=== PATIENT | male | born 1955 | race Caucasian/White ===

== ENCOUNTER → 2016-11-22 | Outpatient (CLI) | payer BC | LOC: RAD 08:22 | DX: M25.462 Effusion, left knee (principal); M17.32 Unilateral post-traumatic osteoarthritis, left knee ==

== ENCOUNTER 2016-11-30 05:34 | Inpatient (IN) | payer BC ==
[2016-11-26 14:19] LABS: HEMATOCRIT 41.4 % (42.0-52.0); HEMOGLOBIN 13.9 gm/dL (14.0-18.0); MCH 30.3 pg (26.0-34.0); MCHC 33.6 g/dL (28.0-37.0); MCV 90.1 fL (80.0-100.0); RBC 4.6 mil/uL (4.50-6.00); RDW 13.3 % (10.5-14.5); WBC 8.6 thou/uL (4.0-11.0)
[2016-11-26 14:24] LABS: URINE BILIRUBIN NEGATIVE (Negative); URINE BLOOD NEGATIVE (Negative); URINE COLOR YELLOW; URINE GLUCOSE-RANDOM* NEGATIVE (Negative); URINE KETONES NEGATIVE (Negative); URINE LEUKOCYTES-REFLEX NEGATIVE (Negative); URINE PROTEIN (DIPSTICK) NEGATIVE (Negative); URINE UROBILINOGEN 0.2 E.U./dl (0.2-1.0)
[2016-11-26 14:33] LABS: ALBUMIN 3.9 g/dL (3.4-5.0); CALCIUM 8.5 mg/dL (8.5-10.1); CREATININE 0.9 mg/dL (0.7-1.3); POTASSIUM 4.1 mmol/L (3.5-5.1)
[2016-11-26 14:36] LABS: PROTIME 10.1 Seconds (9.3-11.4)
[~2016-11-30] VITALS: Ht 182.9 cm; Wt 78.0 kg
[2016-11-30] VITALS (8 sets, daily range): BP systolic 106–122; BP diastolic 63–81
--- NOTE | ~2016-11-30 | H ---
[facility] [place] [address] HISTORY AND PHYSICAL Name: NIRMAL SMALL Room #: 547-P [facility] IN M.R.#: [id number] Admission: 11/30/16 Attend Phys: Ivan Parada MD Discharge: 12/01/16 Date of : 59 Report #: [id number] THIS REPORT FOR: //name// For History and Physical, please see office documentation/handwritten note in the patient's medical record. <ELECTRONICALLY SIGNED> By: Ivan Parada MD 12/07/16 0720 1225 Ivan Parada MD /
--- NOTE | ~2016-11-30 | O ---
[facility] [address] [address] OPERATIVE REPORT Name: GEOVANNYNIRMAL Jez Room #: 547-P [facility] IN M.R.#: [id number] Admission: 11/30/16 Attend Phys: Ivan Parada MD Discharge: 12/01/16 Date of : 59 Report #: [id number] THIS REPORT FOR: //name// CC: Ivan Byrnes MD DATE OF SERVICE: 11/30/2016 PREOPERATIVE DIAGNOSIS: Left knee subluxated polyethylene component to unicompartmental knee replacement. POSTOPERATIVE DIAGNOSIS: Left knee subluxated polyethylene component to unicompartmental knee replacement. PROCEDURE: Left knee exchange of polyethylene for a thicker polyethylene component. SURGEON: Ivan Parada M.D. R AND D LAB TECHNICIAN: Zachary Beatty, nurse practitioner. ANESTHETIC: General. INDICATIONS: See [facility] H and P. IMPLANTS UTILIZED: We used a [employer] [place] left medial meniscal bearing polyethylene component size medium, 4 mm thick. DESCRIPTION OF PROCEDURE: After adequate general anesthesia had been obtained, the patient's left lower extremity was prepped and draped in the usual meticulous sterile fashion. A previously made incision was opened, subQ divided sharply. Medial parapatellar incision was made. We identified that the component had apparently self-reduced. It was, however, worn a little thin and he had increased opening with valgus dressing. The component was removed. I irrigated the knee copiously and removed scarred tissue adjacent to the implant. The femoral component and tibial component were both inspected thoroughly. I placed pressure on that with an instrument and they clearly were not loose. I then placed the trial. I used a 4-mm trial and we had excellent excursion and good stability with this component trial. I did elect to remove a little bit of bone from the anterior aspect to the component to ensure we did not have any impingement in extension. At this time, the wound was irrigated copiously. The implant was taken out of the field, soaked in antibiotic irrigation and then put into position. It was taken through several cycles of flexion and extension and did appear to be [facility] [address] [place] [address] OPERATIVE REPORT Name: NIRMAL SMALL Room #: 547-P [facility] IN M.R.#: [id number] Admission: 11/30/16 Attend Phys: Ivan Parada MD Discharge: 12/01/16 Date of : 59 Report #: [id number] stable. At this time, the knee was taken out to 30 degrees of flexion. I then closed the retinaculum with combination of interrupted [id number] #1 Vicryl as well as running #1 Tevdek. SubQ was closed with 2-0 Monocryl, skin closed with shelley. Sterile compressive dressing was applied and tourniquet then deflated. <ELECTRONICALLY SIGNED> By: Ivan Parada MD 12/07/16 0720 1053 1211 Ivan Parada MD /jorgito
[~2016-11-30 05:34] MED LIST: ASPIR-LOW81 MG PO; BUPROPION HCL200 MG PO; CENTRUM SILVER1 EAC2 PO; CLARITIN10 MG PO; GLUCOSAMINE CH1 EAC1 PO; METOPROLOL SUCC50 MG PO; TAMBOCOR 100 M100 M1 PO
[2016-12-01 00:05] VITALS: BP 98/63
[2016-12-01 04:00] VITALS: BP 106/66
[2016-12-01] MEDS ORDERED: HYDROCODONE-APA1 TA1 PO (07:02)
[2016-12-01 08:25] VITALS: BP 111/77
[2016-12-01] MEDS ORDERED: ASPIRIN325 PO (16:02)
[2016-12-01 16:21] VITALS: BP 111/77
[2016-12-01 16:47] VITALS: BP 125/79
== END 2016-12-01 18:15 | disposition home or self-care (01) | DRG 468 ==
LOC: PRE 05:34 → TBA 05:38 → 5S 05:38 → PRE 09:25 → 5S 12:29 → PRE 13:30 → 5S 12-01 18:15
PROVIDERS: Orthopaedic Surgery
PROC: 0SPU0JZ Removal of Synthetic Substitute from Left Knee Joint, Femoral Surface, Open Approach (ICD-10-PCS; principal; 2016-11-30)
PROC: 0SRU0JZ Replacement of Left Knee Joint, Femoral Surface with Synthetic Substitute, Open Approach (ICD-10-PCS; principal; 2016-11-30)
DX: T84.023A Instability of internal left knee prosthesis, initial encounter (principal); I48.0 Paroxysmal atrial fibrillation; F41.9 Anxiety disorder, unspecified; I50.9 Heart failure, unspecified; F32.9 Major depressive disorder, single episode, unspecified; Z82.61 Family history of arthritis; Z82.49 Family history of ischemic heart disease and other diseases of the circulatory system
CPT/HCPCS: 10785; 50010; 50101; 50415; 50954; 51320; 51412; 51771; 52001; 52282; 53000; 53337; 53370; 56525; 56527; 62110; 62900; 70005

== ENCOUNTER → 2018-05-30 | Outpatient (CLI) | payer BC ==
[~2018-05-30] MED LIST changes: +ASPIRIN325 PO; +HYDROCODONE-APA1 TA1 PO
[2018-05-30 08:46] LABS: HEMATOCRIT 40.8 % (42.0-52.0); HEMOGLOBIN 13.9 gm/dL (14.0-18.0); MCH 31.1 pg (26.0-34.0); MCHC 34.1 g/dL (28.0-37.0); MCV 91.3 fL (80.0-100.0); RBC 4.47 mil/uL (4.50-6.00); RDW 13.4 % (10.5-14.5); WBC 7.4 thou/uL (4.0-11.0)
[2018-05-30 08:56] LABS: ALBUMIN 3.8 g/dL (3.4-5.0); CALCIUM 9.3 mg/dL (8.5-10.1); CREATININE 0.9 mg/dL (0.7-1.3); POTASSIUM 4.2 mmol/L (3.5-5.1); TOTAL BILIRUBIN 0.4 mg/dL (<0.1-1.0); TOTAL PROTEIN 7.8 g/dL (6.4-8.2)
== END ==
LOC: CAT 07:36
PROVIDERS: Internal Medicine Cardiovascular Disease
DX: J43.9 Emphysema, unspecified (principal)

== ENCOUNTER 2018-06-02 06:31 | Observation (INO) | payer BC ==
[2018-06-02] VITALS (7 sets, daily range): BP systolic 90–117; BP diastolic 52–80
[~2018-06-02] VITALS: Ht 182.9 cm; Wt 79.4 kg
--- NOTE | ~2018-06-02 | H ---
[facility] [place] [address] [address] [place] [address] HISTORY AND PHYSICAL Name: NIRMAL SMALL Room #: 213-P [facility] M..#: [id number] Admission: 06/02/18 Attend Phys: Wesley Mcdonough MD Discharge: Date of : 59 Report #: [id number] THIS REPORT FOR: //name// CC: Wesley Byrnes DATE OF SERVICE: 06/02/2018 PREOPERATIVE DIAGNOSIS: Atrial fibrillation. HISTORY OF PRESENT ILLNESS: The patient is a 63-year-old male with a history of paroxysmal AFib, here for AFib ablation. He denies chest pain, shortness of breath, PND, orthopnea, presyncope or syncope. He has been having increased palpitations and has had intolerances to flecainide due to fatigue and weakness. PAST MEDICAL HISTORY: 1. Paroxysmal AFib. 2. Prior knee surgery. 3. Obstructive sleep apnea. SOCIAL HISTORY: Does not smoke. FAMILY HISTORY: Noncontributory. ALLERGIES: No known drug allergies. MEDICATIONS: Have been reviewed and include the beta priya, flecainide and Pradaxa therapy. REVIEW OF SYSTEMS: A 12-point review of systems was performed and was negative other than what I mentioned above. PHYSICAL EXAMINATION: VITAL SIGNS: Stable. GENERAL: No acute distress. HEENT: Oropharynx clear. HEART: Regular rate and rhythm. LUNGS: Clear to auscultation bilaterally. ABDOMEN: Soft, nontender, nondistended. EXTREMITIES: No clubbing, cyanosis, edema. NEUROLOGIC: Cranial nerves 2-12 intact. LABORATORY DATA: Today were within normal limits. His recent MADELINE showed no clot, normal LV function. His CT scan showed normal left atrial anatomy. [facility] [address] [place] [address] HISTORY AND PHYSICAL Name: NIRMAL SMALL SEKOU Room #: 213-P [facility] Bryn#: [id number] Admission: 06/02/18 Attend Phys: Wesley Mcdonough MD Discharge: Date of : 59 Report #: [id number] ASSESSMENT: Paroxysmal atrial fibrillation. PLAN: The patient will proceed with AFib ablation. We have discussed the details of the procedure including the risks, which include but not limited to bleeding, infection, vascular damage, cardiac perforation as well as stroke or LA. He understands these risks and is willing to proceed. By: 1400 1730 Wesley Mcdonough MD /nt
--- NOTE | ~2018-06-02 | D ---
[facility] [place] [address] DISCHARGE SUMMARY Name: NIRMAL SMALL Room #: 213-P [facility] Sebastian Clemente#: [id number] Admission: 06/02/18 Attend Phys: Wesley Mcdonough MD Discharge: 06/03/18 Date of : 59 Report #: [id number] THIS REPORT FOR: //name// CC: Wesley Byrnes DATE OF SERVICE: 06/03/2018 FINAL DIAGNOSES: 1. Atrial fibrillation, status post ablation. 2. 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 3. Hypertension. 4. Obstructive sleep apnea. HOSPITAL COURSE: Please see the procedure note. The patient has a history of paroxysmal atrial fibrillation, managed with flecainide and beta priya therapy. He has symptoms attributed to his arrhythmia and medications. He presented electively for an EP study. Dr. Mcdonough performed ablation of atrial fibrillation. 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 He has remained hemodynamically stable overnight. Both groin areas are intact without evidence for hematoma. He will be discharged home. FINAL DISPOSITION: He will continue Pradaxa therapy, flecainide, Toprol-XL 50 mg daily. He is given instructions for followup in the office. <ELECTRONICALLY SIGNED> By: Navneet Ellington MD 06/04/18 0812 0934 1019 MD gibran Diamond
--- NOTE | ~2018-06-02 | P ---
[facility] [place] [address] [address] PROCEDURE REPORT Name: NIRMAL SMALL Room #: 213-P [facility] M.R.#: [id number] Admission: 06/02/18 Attend Phys: Wesley Mcdonough MD Discharge: Date of : 59 Report #: [id number] THIS REPORT FOR: //name// CC: Wesley Byrnes PREOPERATIVE DIAGNOSIS: Paroxysmal atrial fibrillation. POSTOPERATIVE DIAGNOSES: Paroxysmal atrial fibrillation, atrial flutter, and typical atrioventricular mehnaz reentrant tachycardia. PROCEDURES PERFORMED: 1. A-fib ablation, CPT code 81135. 2. 3D mapping, CPT code 28112. 3. Intracardiac echo, CPT code 18056. 4. Second pathway ablation for AV mehnaz retention tachycardia, CPT code 34904. HISTORY: The patient is a 63-year-old male with history of paroxysmal atrial fibrillation who has had continued palpitations and intolerances to flecainide therapy and is here for an ablation. ANESTHESIA: The patient underwent general anesthesia with no anesthesia related complications. DESCRIPTION OF PROCEDURE: The patient underwent informed consent. We discussed the details of the procedure including the risks, which include, but not limited to bleeding, vascular damage, cardiac perforation, as well as stroke or PA. He understood these risks and was willing to proceed. The patient was brought to the EP laboratory in a fasting and sedated state and prepped and draped in a sterile fashion. I obtained access to the right femoral vein times 3, placing an 8-Palestinian, 9-Palestinian, and 7-Palestinian short sheath using the modified Seldinger technique and then under fluoroscopy, I placed a decapolar catheter easily in the coronary sinus, which of note had a very vertical orientation and I paced the ICE catheter into the right atrium. Of note, with intracardiac ultrasound, I had difficulties really seeing the pulmonary veins or the appendage. He had a very vertical heart orientation and therefore our standard views were somewhat different than usual given his heart's orientation. The patient was then systemically heparinized and I attempted to perform a transseptal using a standard C0 Vidal needle. However, this did not provide enough reach due to his unusual anatomy. I therefore used a C1 needle and I was able to obtain access in the very anterior location along the interatrial septum. This crossed with ease. Prior to the transseptal, the patient was systemically heparinized. Next, I advanced the SL1 sheath into the left atrium and using a Biosense Stanley Lasso catheter, I created a detailed 3D geometry of the left atrium. Next, I exchanged the SL1 sheath for the cryo sheath and [address] [address] PROCEDURE REPORT Name: GEOVANNYNIRMAL SEKOU Room #: 213-P [facility] Sebastian M.RKala#: [id number] Admission: 06/02/18 Attend Phys: Wesley Mcdonough MD Discharge: Date of : 59 Report #: [id number] placed the cryoballoon into the left atrium. I first started by isolating the left superior pulmonary vein. Of note, the left superior pulmonary vein had a very vertical takeoff. This vein underwent 1 freeze of 4 minutes' duration. This vein isolated within 53 seconds. I then turned my attention to the left inferior pulmonary vein. I performed a 3-minute freeze followed by a 4-minute freeze and the vein remained connected. I then clocked to the catheter and performed a third freeze where the vein isolated within 48 seconds. The third freeze was of 3 minutes' duration. I then turned my attention to the right-sided pulmonary veins. Phrenic nerve pacing was performed during these freezes and there was never any phrenic nerve compromise. I performed two 4-minute freezes in this vessel and the vein remained connected. I then clocked the catheter and pulled it down to better seal the inferior portion of this vessel and the vein isolated within 58 seconds. Therefore, the last freeze was of 3 minutes' duration. I then turned my attention to the right inferior pulmonary vein. The CT scan demonstrated that this vein had several branches. There was a superior, middle, and inferior branch to this vessel. I first started by doing two 4-minute freezes in the superior branch and there was evidence of an inferior leak. I then placed my wire into the middle branch and performed two 4-minute freezes in this vessel as well. We reinterrogated the vein and it was still connected. I then found slightly lower branch and performed two 4-minute freezes in this vessel. During the last freeze, the vein isolated within 27 seconds. We reinterrogated all 4 veins and there was evidence of entrance and exit block throughout. As such, I pulled my cryo sheath and balloon into the right atrium. Post-a-fib ablation, I performed a basic EP study. With atrial burst pacing, the patient underwent into supraventricular tachycardia. At that point, I only had a coronary sinus catheter in, but it was suggestive of AV mehnaz reentrant tachycardia. I terminated vessel with atrial pacing. I therefore removed the sheath and exchanges for short 14-Palestinian sheath and I removed the ICE catheter and I placed His catheter and another catheter into the right ventricle. I repeated my EP study. The patient had an AH interval of 93 milliseconds and an HV interval 35 milliseconds. I was able to induce AVNRT again. There was a VAHV response consistent with typical AV mehnaz reentrant tachycardia. The patient then degenerated into atrial fibrillation, which organized into a left-sided flutter and then a right-sided flutter. I tried to pace terminate this and this was not successful, so we performed a 100-joule synchronized cardioversion with religion of sinus rhythm. I therefore continued my EP study and I was able to induce AVNRT again with double atrial extrastimuli with a septal VA time of 35 milliseconds and again we could reproducibly demonstrate a VAHV response. 3D MAPPING AND SVT ABLATION: The patient was then prepped for ablation of his typical AV mehnaz reentrant tachycardia. I therefore obtained access to the left femoral vein and I placed the quadripolar catheter for right ventricular pacing in this catheter. I then exchanged my 9-Palestinian short sheath that was used for [facility] [address] [place] [address] PROCEDURE REPORT Name: GEOVANNYNIRMAL Room #: [address] [place] [address] Sebastian Clemente#: [id number] Admission: 06/02/18 Attend Phys: Wesley Mcdonough MD Discharge: Date of : 59 Report #: [id number] intracardiac ultrasound for an SR0 sheath and I placed a Biosense Stanley 4 mm bidirectional ablation catheter into the right atrium. I created a detailed 3D geometry of the His bundle and slow pathway region. Again, this patient did have somewhat unusual anatomy given how vertical his heart was and how vertical the coronary sinus was. I was able to find a nice slow pathway potential, although the ratio between my slow pathway potential and RV potential was not ideal. Fortunately, ablation at this site resulted in nice slow junctional rhythms. I performed a total of 3 ablation lesions, each of 60 seconds and there were frequent slow junctionals throughout these. POST-ABLATION FINDINGS: Post-ablation, I performed a basic EP study. AV block was noted at 300 milliseconds and atrial ERP was noted at 240 milliseconds at a [address] cycle length. Double atrial extrastimuli were also delivered. The patient was no longer inducible for AV mehnaz reentrant tachycardia. Post-ablation, the patient was in sinus rhythm with a sinus cycle length of 880 milliseconds, PA interval 190 milliseconds, QRS duration 90 milliseconds, and QT interval 460 milliseconds. As such, the patient received systemic protamine. Once ACT was within acceptable range, all catheters and sheaths were pulled and hemostasis was obtained. There were no procedure related complications. CONCLUSIONS: 1. Successful a-fib ablation with isolation of the 4 pulmonary veins with evidence of entrance and exit block. 2. Successful ablation of typical AV mehnaz reentrant tachycardia. 3. Induction of possible left-sided and possible right-sided flutter that were successfully cardioverted. 4. Normal SA mehnaz function. 5. Normal AV mehnaz function. 6. Normal His-Purkinje function. 7. No other inducible arrhythmias. By: 1358 0526 Wesley Mcdonough MD /nt
[2018-06-02] MEDS ORDERED: FLAX SEED OIL1000 MG PO (06:54)
[2018-06-02 07:06] LABS: BASOPHILS 0.7 % (0.0-2.0); HEMATOCRIT 40.5 % (42.0-52.0); HEMOGLOBIN 13.8 gm/dL (14.0-18.0); LYMPHOCYTES 28.3 % (24.0-44.0); MCH 30.9 pg (26.0-34.0); MCHC 33.9 g/dL (28.0-37.0); MCV 91.2 fL (80.0-100.0); MONOCYTES 9.3 % (1.0-8.0); PLATELET COUNT 360 thou/uL (150-400); POLYS 57.7 % (36.0-66.0); RBC 4.44 mil/uL (4.50-6.00); RDW 13.3 % (10.5-14.5); WBC 6.9 thou/uL (4.0-11.0)
[2018-06-02 07:14] LABS: CALCIUM 9.3 mg/dL (8.5-10.1)
[2018-06-02 07:21] LABS: ALBUMIN 3.7 g/dL (3.4-5.0); TOTAL BILIRUBIN 0.4 mg/dL (<0.1-1.0); TOTAL PROTEIN 7.7 g/dL (6.4-8.2)
[2018-06-02 07:32] LABS: APTT 27.3 Seconds (24.5-32.8); PROTIME 10.5 Seconds (9.3-11.4)
[2018-06-03 00:03] VITALS: BP 106/68
[2018-06-03 04:10] VITALS: BP 105/69
[2018-06-03 08:03] VITALS: BP 94/61
[2018-06-03] MEDS ORDERED: PRADAXA150 MG PO (09:19)
[2018-06-03 11:54] VITALS: BP 109/66
[2018-06-03 12:08] VITALS: BP 109/66
== END 2018-06-03 13:33 | disposition home or self-care (01) ==
LOC: CATH 06:31 → 2N 14:56
PROVIDERS: Internal Medicine Cardiovascular Disease
DX: I48.0 Paroxysmal atrial fibrillation (principal); I47.1 Supraventricular tachycardia; I48.92 Unspecified atrial flutter; G47.33 Obstructive sleep apnea (adult) (pediatric); I10 Essential (primary) hypertension; Z98.890 Other specified postprocedural states; Z79.899 Other long term (current) drug therapy
CPT/HCPCS: 62110; 62900; 65020; 65040; 70005

== ENCOUNTER 2019-05-04 09:43 | Observation (INO) | payer BC ==
[2019-05-04] VITALS (8 sets, daily range): BP systolic 105–117; BP diastolic 73–80
[~2019-05-04] VITALS: Ht 180.3 cm; Wt 77.1 kg
[~2019-05-04 09:43] MED LIST changes: +FLAX SEED OIL1000 MG PO; +PRADAXA150 MG PO
[2019-05-04 10:31] LABS: ABSOLUTE NEUTROPHILS 3.9 thou/uL (1.4-8.2); BASOPHILS 0.5 % (0.0-2.0); EOSINOPHILS 2.2 % (0.0-3.0); HEMATOCRIT 42.8 % (42.0-52.0); HEMOGLOBIN 14.2 gm/dL (14.0-18.0); LYMPHOCYTES 28.3 % (24.0-44.0); MCH 30.8 pg (26.0-34.0); MCHC 33.1 g/dL (28.0-37.0); MCV 93.1 fL (80.0-100.0); MONOCYTES 8.7 % (1.0-8.0); PLATELET COUNT 341 thou/uL (150-400); POLYS 60.3 % (36.0-66.0); RBC 4.59 mil/uL (4.50-6.00); RDW 13.2 % (10.5-14.5); WBC 6.4 thou/uL (4.0-11.0)
[2019-05-04] MEDS ORDERED: FISH OIL 1,001000 M2 PO (10:35)
[2019-05-04] MEDS ORDERED: MELATONIN5 M1 PO (10:35)
[2019-05-04 10:43] LABS: CALCIUM 9.5 mg/dL (8.5-10.1); CREATININE 0.7 mg/dL (0.7-1.3); POTASSIUM 4.4 mmol/L (3.5-5.1)
[2019-05-04 10:44] LABS: APTT 26.3 Seconds (24.5-32.8); PROTIME 10.2 Seconds (9.3-11.4)
--- NOTE | 2019-05-04 19:34 | NUR ---
PT ADMITED FROM [employer]. ALERT AND ORIENTED. VSS. WAS ON BED REST FOR 3 HOURS. RIGHT AND LEFT GROIN INCISION C/D/I. NO HEMATOMA NOTED. INSTRUCTIONS GIVEN TO DISCHARGE PT AFTER BEDREST. DISCHARGE INSTRUCTIONS GIVEN TO PT AND THE . PT VERBERLISED UNDERSTANDING.
--- NOTE | 2019-05-08 15:55 | P ---
[facility] [place] [address] PROCEDURE REPORT Name: NIRMAL SMALL Room #: 212-P [facility] Sebastian Clemente#: [id number] Admission: 05/04/19 Attend Phys: Wesley Mcdonough MD Discharge: 05/04/19 Date of : 59 Report #: [id number] THIS REPORT FOR: //name// CC: Wesley Wahlen Fitz DATE OF SERVICE: 05/04/2019 PREOPERATIVE DIAGNOSIS: Atrioventricular mehnaz reentry tachycardia. POSTOPERATIVE DIAGNOSIS: Atrioventricular mehnaz reentry tachycardia. PROCEDURES PERFORMED: 1. SVT ablation, CPT code 96027. 2. EP with left atrial pacing and recording, CPT code 97779. 3. A 3D mapping, CPT code 38462. 4. Program stimulation pacing after IV drug infusion, CPT code 37076. HISTORY: The patient is a 64-year-old male with history of paroxysmal atrial fibrillation who underwent AFib ablation. At the time of his ablation, EP study was performed and he was found to have typical AV mehnaz reentrant tachycardia. This underwent successful ablation and he was rendered noninducible and per my notes he had good junctionals. Recently, the patient presented to the Emergency Room with palpitations and was noted to be in SVT, which terminated with IV adenosine. He is here for a repeat EP study and possible ablation. ANESTHESIA: The patient underwent MAC anesthesia with no anesthesia related complications. DESCRIPTION OF PROCEDURE: The patient underwent informed consent. We discussed the details of the procedure including the risks, which include but not limited to bleeding, vascular damage, cardiac perforation, stroke, CT as well as damage to the [place] conduction system requiring a permanent pacemaker. As such, the patient was brought to the EP laboratory in a fasting and sedated state and prepped and draped in a sterile fashion. I injected lidocaine at the groin and obtained access to the bilateral femoral veins placing an 8 and 6-Martiniquais short sheath in the right femoral vein and a 6 and 7-Martiniquais short sheath in the left femoral vein. Next, under fluoroscopy, I placed a decapolar catheter easily in the coronary sinus. Of note, he has a very vertical coronary sinus, which I noted at the time of my initial ablation. He also has a large coronary sinus ostium and the His catheter would easily flip from the His position deep into the coronary sinus. All catheters were positioned in a stable standard fashion and the decapolar catheter was used for left atrial pacing and recording. Next, a basic EP study was performed. At baseline, the patient was in sinus rhythm with a sinus cycle length of 1145 milliseconds, DC interval [address] [address] PROCEDURE REPORT Name: NIRMAL SMALL SEKOU Room #: 212-P [facility] Sebastian M.R.#: [id number] Admission: 05/04/19 Attend Phys: Wesley Mcdonough MD Discharge: 05/04/19 Date of : 59 Report #: [id number] milliseconds, QRS duration 110 milliseconds, QT interval 465 milliseconds, AH interval 100 milliseconds, and HV interval 40 milliseconds. Atrial burst pacing was performed. It was difficult to determine AV block as his atrial refractory time was somewhat long. Thresholds were stable, but if I would start pacing around 350 milliseconds, the atrial lead was stopped capturing. This was the same for the His catheter. Atrial extrastimuli were delivered at 280 milliseconds at [address] cycle length. Ventricular pacing was performed and VA block was noted at 470 milliseconds and VA ERP was noted at 450 milliseconds at [address] cycle length. VA conduction appeared both in line and decremental. The patient had accidentally taken a dose of his beta priya yesterday morning, so we quickly moved into the isoproterenol infusion at 2 mcg per minute. VA block was noted at 410 milliseconds, VA ERP is noted 270 milliseconds at [address] cycle length and AV block was now at around 280 milliseconds. I performed aggressive atrial burst pacing and I could not induce AVNRT. I then gave a single atrial extrastimuli and at 200 milliseconds at a [address] cycle length, the patient went into SVT. This was an accidental induction of SVT is after his S2, he had a little burst of atrial tachycardia or atrial flutter that put him into AVNRT. I attempted to entrain this and this was unsuccessful. I looked back at my prior note and it appeared that I could easily induce him with double atrial extrastimuli. Therefore, I used this method and I could be more easily induce his SVT. The SVT was consistent with typical AV mehnaz reentrant tachycardia with a septal VA time of 35 milliseconds, tachycardia cycle length of 280 milliseconds. I was able to demonstrate good entrainment twice with a VAHV response consistent with typical AV mehnaz reentrant tachycardia. As such, the isoproterenol infusion was turned off. I removed my HRA catheter and exchanged this sheath for a SR0 and a 4-mm Biosense Stanley ablation catheter. 3D MAPPING AND ABLATION: Using the above ablation catheter, a 3D geometry of the right atrium, His cloud region and the coronary sinus was obtained. Again, the ablation catheter would easily fall into the large coronary sinus that was quite vertical. I then looked for slow pathway potential and I quickly came across a nice slow pathway potential with a nice ratio between the A and ventricular signal. This was at a very septal location. I decided to ablate here at 50 vines and 55 degrees. The first ablation lesion resulted in about 30 seconds of nice slow junctionals. I then deflected 1 or 2 mm higher and again came on ablation and this time we had nice slow junctionals for about 30 seconds. I decided to perform an additional lesion at the same site and again we had approximately 40 seconds of junctionals that actually continued after we ablated. As such, I decided to perform repeat testing. Isoproterenol infusion was started at 2 mcg per minute. AV block was noted at 270 milliseconds. Again, I tried a single atrial extrastimuli to induce tachycardia and this did not seem to work. Again gave double atrial extrastimuli at multiple cycle lengths and we could no longer induce AV mehnaz reentrant tachycardia. As such, the isoproterenol infusion was turned off. Post-ablation, he was in sinus [facility] [address] [place] [address] PROCEDURE REPORT Name: NIRMAL SMALL SEKOU Room #: 212-P [facility] Sebastian Clemente#: [id number] Admission: 05/04/19 Attend Phys: Wesley Mcdonough MD Discharge: 05/04/19 Date of : 59 Report #: [id number] rhythm with a sinus cycle length of 590 milliseconds, DC interval 135 milliseconds, QRS duration 90 milliseconds, QT interval 335 milliseconds, AH interval 96 milliseconds, and HV interval of 38 milliseconds. As such, catheters and sheaths were pulled. Hemostasis was obtained and the patient awoke neurologically and hemodynamically intact with no significant bleeding. CONCLUSIONS: 1. Successful repeat ablation for typical AV mehnaz reentrant tachycardia. 2. Normal SA mehnaz function. 3. Normal AV mehnaz function. 4. Normal His-Purkinje function. 5. No other inducible arrhythmias on or off isoproterenol. <ELECTRONICALLY SIGNED> By: Wesley Mcdonough MD 05/08/19 1555 1610 0125 Wesley Mcdonough MD /nt
== END 2019-05-04 19:36 | disposition home or self-care (01) ==
LOC: CATH 09:43 → EROBS 17:02 → 2N 17:13
PROVIDERS: ADMIT Internal Medicine Cardiovascular Disease
DX: I47.1 Supraventricular tachycardia (principal)
CPT/HCPCS: 62110; 62900; 70005